=== PATIENT | male | born 1960 | race Caucasian/White ===

== ENCOUNTER 2021-01-06 11:05 | Inpatient (IN) | payer SELFPAY ==
[2021-01-06] VITALS (48 sets, daily range): BP systolic 83–130; BP diastolic 43–78; PULSE 67–101; RESP 4–25; O2SAT 90–100; BMI 32.1
--- NOTE | 2021-01-06 11:16 | ECG_ITS ---
[facility] Test Date: 2021-01-06 Pat Name: Jeffy Nguyen Department: Room: Gender: Male Director Of Online Education: : 1960 Requested By: Kevan Limon I Order Number: [id number] Tameka MD: Colin Ma M.D. Measurements Intervals [place] Rate: 97 P: 37 OR: 157 QRS: 38 QRSD: 105 T: 55 QT: 353 QTc: 450 Interpretive Statements SINUS RHYTHM EARLY REPOLARIZATION [ST ELEVATION WITH NORMALLY INFLECTED T WAVE] Compared to ECG 09/30/2019 14:46:02 Early repolarization now present Electronically Signed On 01-06-2021 20:55:55 DRYING MACHINE BACK TENDER by Colin Ma M.D. [id number]
--- NOTE | 2021-01-06 11:16 | XR_ITS ---
WS: [id number] PORTABLE CHEST HISTORY: Chest pain COMPARISON: 09/30/2019 Lungs are clear and well expanded. No pleural effusion or pneumothorax. Cardiac size: Normal. Mediastinum/Aorta: Normal mediastinum. No osseous abnormality seen. XR/XR chest 1V portable [id number] IMPRESSION: Unremarkable portable chest.
--- NOTE | 2021-01-06 11:18 | W.ED.CHESTPA ---
HPI - Chest Pain General: Chief Complaint: Chest Pain Stated Complaint: chest pain Time Seen by Provider: 01/06/21 11:07 Source: patient Mode of arrival: ambulatory Limitations: no limitations History of Present Illness: HPI narrative: Patient is a 60-year-old male with a history of hypertension and no cardiac history presents to the emergency department with complaints of substernal chest pain that started about an hour prior to arrival. After about 30 minutes he took 1 nitroglycerin sublingual tablets with no improvement. He therefore presents to the emergency department for evaluation. He endorses dizziness, diaphoresis, nausea. Symptoms started when he was cutting trees. He has no prior cardiac history. complaint: chest pain Onset (ago): hour(s) (1) Timing of current episode: constant Prior episodes: No Onset: during exertion Pain location: substernal Pain radiation: jaw/teeth Severity: moderate Quality: sharp Relieving factors: nothing Exacerbating factors: exertion Associated symptoms: Reports diaphoresis, dyspnea and nausea; Deny abdominal pain, fever(s), leg edema, palpitations, sense of impending doom, syncope or vomiting Review of Systems General: Reports: 10 or more systems reviewed and unremarkable except in HPI and below Const: Reports: diaphoresis; Denies: fever(s) Eyes: Denies: change in vision or blurry vision ENMT: Denies: throat pain, enlarged tonsils, odynophagia, hoarseness, mouth pain or swelling of lips/tongue Card: Denies: palpitations or syncope Resp: Reports: dyspnea GI: Reports: nausea; Denies: abdominal pain or vomiting : Denies: flank pain, dysuria, urinary frequency, urinary urgency or urinary hesitancy Musc: Denies: neck pain, back pain or extremity swelling Skin/Breast: Denies: rash, pruritus or erythema Neuro: Denies: headache(s), numbness in extremities or weakness in extremities Endo: Denies: polyuria, polydipsia or tired all the time PFSH ED PFSH: Medical History HLD (hyperlipidemia) HTN (hypertension) Surgical History History of appendectomy History of hip surgery History of surgery on arm Family History Mother CHF (congestive heart failure) Social History Smoking and tobacco status: never smoked Alcohol intake: current Alcohol intake frequency: holidays/special occasions only Lives independently: Yes Current occupational status: employed Physical Exam Const: COMMON NORMALS: no acute distress, average body habitus, patient oriented x3, no limitations, healthy appearing, alert and well nourished HENMT: COMMON NORMALS: normocephalic, atraumatic and moist oral mucous membranes HEAD & SCALP: normocephalic and atraumatic Neck/C-Spine: COMMON NORMALS: no meningeal signs and no JVD Chest: COMMONS NORMALS: normal inspection of the chest and normal palpation of entire chest wall Resp: COMMON NORMALS: normal respiratory effort, No retractions, No use of accessory muscles, clear to auscultation bilaterally and percussion normal AUSCULTATION: clear to auscultation bilaterally PERCUSSION: percussion normal Cardio: COMMON NORMALS: no JVD, regular rate, regular rhythm, S1 normal heart sound present, S2 normal heart sound present, No gallops present (Cardio), No clicks present (Cardio), No rub (Cardio) and Peripheral pulses 2+ throughout RATE: regular rate RHYTHM: regular rhythm HEART SOUNDS: S1 normal heart sound present, S2 normal heart sound present and Murmur heart sound present PERIPHERAL PULSES: Peripheral pulses 2+ throughout GI: COMMON NORMALS: Normal to inspection, nondistended, normoactive bowel sounds present, Soft to palpation, non-tender, No hepatosplenomegaly present, no masses and no bruits PALPATION: Yes Soft to palpation and Yes No hepatosplenomegaly present Extremity: COMMON NORMALS: normal to inspection, full ROM, capillary refill normal, no calf tenderness and no pedal edema Neuro: COMMON NORMALS: patient oriented x3 SENSORIUM/ORIENTATION: Yes alert MENINGEAL SIGNS: Yes no meningeal signs Skin: COMMON NORMALS: no rashes or lesions noted, no wounds, turgor normal, no jaundice, no petechiae and no mottling GENERAL SKIN EXAM: no rashes or lesions noted and turgor normal Course Reevaluation(s): Time: 15:09 Consultations: Consultation #1: Discussed the patient with Dr. Bolden, park interpretive ranger. Discussed the baseline troponin with her. Since he appears to have CKD she advised that we wait for the 2-hour troponin. Time: 13:38 Consultation #2: Discussed the patient with Dr. Sapp, hospitalist. He kindly accepted the patient to his service. Time: 15:02 Vital Signs: Vital signs: Vital Signs Pulse Rate 76 01/06/21 21:49 Respiratory Rate 18 01/06/21 21:49 Blood Pressure 106/58 01/06/21 21:49 Pulse Oximetry 98 01/06/21 21:49 MDM - Chest Pain MDM Narrative: Medical decision making narrative: 60-year-old male with no prior cardiac history presents to the emergency department with chest pain that started while he was cutting trees. Evaluation in the emergency department was consistent with a non-STEMI. Because he appears to have chronic kidney disease he was started on a heparin drip and is admitted to the cardiac stepdown unit for further evaluation and management. He was mildly hypotensive in the emergency department through most of his stay here, otherwise he was stable. Medical Records: Attestation: I reviewed the patient's medical records. Lab Data: Attestation: I reviewed the patient's lab results. Labs: Lab Results 01/06/21 01/06/21 01/06/21 Range/Units 11:35 11:35 11:35 WBC 8.1 (4.0-10.0) 10^3/ uL RBC 5.00 (4.1-5.3) 10^6/u L Hgb 15.4 (11.7-16.6) g/dL Hct 46.1 (42.0-52.0) % MCV 92.2 (80-94) fL MCH 30.8 (28.0-34.0) pg MCHC 33.4 (30.0-36.0) g/dL RDW 11.9 L (12.1-15.1) % Plt Count 237 (130-400) 10^3/c mm MPV 11.2 H (7.4-10.4) fL Neut % (Auto) 76.4 % Lymph % (Auto) 14.0 % [place] % (Auto) 6.9 % Eos % (Auto) 1.6 % Baso % (Auto) 0.7 % Neut # (Auto) 6.16 (1.8-7.7) 10^3/u L Lymph # (Auto) 1.1 (0.8-4.8) 10^3/u L [place] # (Auto) 0.6 (0.2-0.9) 10^3/u L Eos # (Auto) 0.1 (0.0-0.8) 10^3/u L Baso # (Auto) 0.1 (0.0-0.1) 10^3/u L Nucleated RBC % (a uto) 0 % Nucleated RBCs # 0.0 /100WBC PT 13.00 (12.1-14.9) SECO NDS INR 0.95 (0.8-1.2) D-Dimer 0.77 H (0-0.59) ug/mIFE U Sodium 136 (136-145) mmol/L Potassium 4.2 (3.5-5.1) mmol/L Chloride 100 (98-107) mmol/L Carbon Dioxide 27 (22-29) mmol/L Anion Gap 13.2 (5-19) BUN 19 (8-23) mg/dL Creatinine 1.9 H (0.7-1.2) mg/dL GFR Calculation 36.1 L (90-130) mL/min Glucose 83 (65-115) mg/dL Calculated Osmolal ity 283 L (285-295) mOsm/k g Calcium 9.5 (8.5-10.5) mg/dL Total Bilirubin 0.4 (0.15-1.2) mg/dL AST 16 (0-40) U/L ALT 21 (0-41) U/L Alkaline Phosphata se 62 (40-130) IU/L Creatine Kinase (39-308) U/L Troponin T Baselin e (0-15) ng/L Troponin T 120 Min [place] (0-15) ng/L Delta Troponin T (0-10) ABS# NT-Pro-B Natriuret Pep 9 (0-125) pg/mL Total Protein 6.7 (6.6-8.7) g/dL Albumin 4.6 (3.5-5.2) g/dL Globulin 2.1 (1.3-4.6) g/dL Lipase 29 (13-60) U/L 01/06/21 01/06/21 01/06/21 Range/Units 11:35 11:35 14:10 WBC (4.0-10.0) 10^3/ uL RBC (4.1-5.3) 10^6/u L Hgb (11.7-16.6) g/dL Hct (42.0-52.0) % MCV (80-94) fL MCH (28.0-34.0) pg MCHC (30.0-36.0) g/dL RDW (12.1-15.1) % Plt Count (130-400) 10^3/c mm MPV (7.4-10.4) fL Neut % (Auto) % Lymph % (Auto) % [place] % (Auto) % Eos % (Auto) % Baso % (Auto) % Neut # (Auto) (1.8-7.7) 10^3/u L Lymph # (Auto) (0.8-4.8) 10^3/u L [place] # (Auto) (0.2-0.9) 10^3/u L Eos # (Auto) (0.0-0.8) 10^3/u L Baso # (Auto) (0.0-0.1) 10^3/u L Nucleated RBC % (a uto) % Nucleated RBCs # /100WBC PT (12.1-14.9) SECO NDS INR (0.8-1.2) D-Dimer (0-0.59) ug/mIFE U Sodium (136-145) mmol/L Potassium (3.5-5.1) mmol/L Chloride (98-107) mmol/L Carbon Dioxide (22-29) mmol/L Anion Gap (5-19) BUN (8-23) mg/dL Creatinine (0.7-1.2) mg/dL GFR Calculation (90-130) mL/min Glucose (65-115) mg/dL Calculated Osmolal ity (285-295) mOsm/k g Calcium (8.5-10.5) mg/dL Total Bilirubin (0.15-1.2) mg/dL AST (0-40) U/L ALT (0-41) U/L Alkaline Phosphata se (40-130) IU/L Creatine Kinase 166 (39-308) U/L Troponin T Baselin e 164 H* (0-15) ng/L Troponin T 120 Min [place] 423.5 H (0-15) ng/L Delta Troponin T 259.5 H* (0-10) ABS# NT-Pro-B Natriuret Pep (0-125) pg/mL Total Protein (6.6-8.7) g/dL Albumin (3.5-5.2) g/dL Globulin (1.3-4.6) g/dL Lipase (13-60) U/L Imaging Data^: CXR: Attestation: I personally reviewed and interpreted this imaging study as follows: Radiologist's impression: [address] [address] XRay Report Signed Patient: Jeffy Nguyen #: [id number] : 9Acct#:[id number] Age/Sex: 60 / MADM Date: 01/06/21 Loc: ERRoom/Bed: Attending Dr: Ordering Provider/Ordering MD: Kevan Limon [place], [facility] [place] Service: 01/06/21 Procedure(s): XR chest 1V portable [id number] Accession Number(s): [id number] Report Number: [id number] WS: [id number] PORTABLE CHEST HISTORY: Chest pain COMPARISON: 09/30/2019 Lungs are clear and well expanded. No pleural effusion or pneumothorax. Cardiac size: Normal. Mediastinum/Aorta: Normal mediastinum. No osseous abnormality seen. XR/XR chest 1V portable [id number] IMPRESSION: Unremarkable portable chest. Dictated By:Justina Gonzalez DO Signed By:Justina Gonzalez DOSigned Date/Time:01/06/21 1231 DD/ 1230 EKG Data^: EKG 1: Attestation: I personally reviewed and interpreted this EKG as follows: EKG interpretation date: 01/06/21 EKG interpretation time: 11:09 Prior EKG tracings: not available for review Interpretation: Sinus rhythm. Heart rate 97 bpm. Q waves in leads II and aVF. Early repolarization. EKG 2: Attestation: I personally reviewed and interpreted this EKG as follows: EKG interpretation date: 01/06/21 EKG interpretation time: 13:32 Prior EKG tracings: available for review Interpretation: Sinus rhythm. Heart rate 79 bpm. Q wave in leads II and aVF. No ST changes Critical Care Time Critical Care Time: Critical Care Time: Yes Total Critical Care Time: 60 Attestation: This case had a high probability of a clinically significant, sudden, or life threatening deterioration of this patient's condition which required my full and direct attention, intervention and personal management. Discharge Plan Discharge Patient Disposition: Admitted As Inpatient Admit Provider: Eric Sapp Clinical Impression: NSTEMI (non-ST elevated myocardial infarction) Hypotension Qualifiers: Hypotension type: unspecified hypotension type Qualified Code(s): I95.9 - Hypotension, unspecified Chronic kidney disease Qualifiers: Chronic kidney disease stage: stage 3 (moderate) Chronic kidney disease stage 3 subtype: stage 3b (GFR 30-44) Qualified Code(s): N18.32 - Chronic kidney disease, stage 3b Condition: Stable Coding Level of Care Code ED Credentialing Manager for Chg Fwd Exam Comprehensive
[2021-01-06] MEDS: aspirin 81 mg Chew Tablet 243 MG PO (11:31)
[2021-01-06] MEDS: sodium chloride 0.9% 1,000 ML 999 ML IV ×2 (11:33→14:11)
--- NOTE | 2021-01-06 11:35 | PC.PHAR ---
pt states he has atorvastatin but doesnt take it-pt states he thinks it makes his legs swell-ext med history shows last filled on 05/21/20 90d/s-pt states he has sildenafil 30mg 40mg po daily filled on 08/07/20 20d/s but hasnt taken it in a long time-
[2021-01-06] MEDS: nitroglycerin 1 gm/inch oint Pkt 1 INCH TOPICAL (11:39)
[2021-01-06 12:02] LABS: INR 0.95 (0.8-1.2)
[2021-01-06 12:05] LABS: D Dimer 0.77 ug/mIFEU (0-0.59)
[2021-01-06 12:08] LABS: Basophils # 0.1 10^3/uL (0.0-0.1); Basophils % 0.7 %; Eosinophils # 0.1 10^3/uL (0.0-0.8); Eosinophils % 1.6 %; Hematocrit 46.1 % (42.0-52.0); Hemoglobin 15.4 g/dL (11.7-16.6); Lymphocytes # 1.1 10^3/uL (0.8-4.8); Mean Corpuscular HGB Conc 33.4 g/dL (30.0-36.0); Mean Corpuscular Hemoglobin 30.8 pg (28.0-34.0); Mean Corpuscular Volume 92.2 fL (80-94); Mean Platelet Volume 11.2 fL (7.4-10.4); Monocytes # 0.6 10^3/uL (0.2-0.9); Monocytes % 6.9 %; Neutrophils # 6.16 10^3/uL (1.8-7.7); Neutrophils % 76.4 %; Nucleated Red Blood Cells % 0 %; Platelet Count 237 10^3/cmm (130-400); Red Cell Distribution Width 11.9 % (12.1-15.1); White Blood Count 8.1 10^3/uL (4.0-10.0)
[2021-01-06 12:19] LABS: Alanine Aminotransferase 21 U/L (0-41); Albumin Level 4.6 g/dL (3.5-5.2); Alkaline Phosphatase 62 IU/L (40-130); Anion Gap 13.2 (5-19); Aspartate Amino Transferase 16 U/L (0-40); Blood Urea Nitrogen 19 mg/dL (8-23); Calcium 9.5 mg/dL (8.5-10.5); Carbon Dioxide 27 mmol/L (22-29); Chloride 100 mmol/L (98-107); Globulin 2.1 g/dL (1.3-4.6); Glomerular Filtration Rate 36.1 mL/min (90-130); Glucose 83 mg/dL (65-115); Lipase 29 U/L (13-60); NT Pro B Type Natriuretic Pept 9 pg/mL (0-125); Osmolality Calculated 283 mOsm/kg (285-295); Potassium 4.2 mmol/L (3.5-5.1); Sodium 136 mmol/L (136-145); Total Bilirubin 0.4 mg/dL (0.15-1.2); Total Protein 6.7 g/dL (6.6-8.7)
--- NOTE | 2021-01-06 13:16 | ECG_ITS ---
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 Measurements Intervals [place] Rate: 79 P: 52 NC: 155 QRS: 54 QRSD: 106 T: 61 QT: 388 QTc: 446 Interpretive Statements SINUS RHYTHM Compared to ECG 01/06/2021 11:09:29 Early repolarization no longer present Electronically Signed On 01-06-2021 21:01:38 ENTERPRISE INTEGRATION DEVELOPER by Colin Ma M.D. [id number]
[2021-01-06 13:28] LABS: Troponin(5th) Baseline 164 ng/L (0-15)
--- NOTE | 2021-01-06 13:40 | PC.NURSE ---
EKG done at 1332 and and shown to ER doctor
[2021-01-06] MEDS: heparin 5,000 unit/mL INJ 1 mL 4000 UNIT IVP (14:11)
[2021-01-06 14:48] LABS: Troponin 5 2HR 423.5 ng/L (0-15); Troponin 5 2HR Delta 259.5 ABS# (0-10)
[2021-01-06] MEDS: heparin drip 25,000 UNIT/500 ML PREMIX 31.8 UNIT IV (15:15)
[2021-01-06 15:20] LABS: Creatine Phosphokinase 166 U/L (39-308)
[2021-01-06 15:45] LABS: Platelet Count 230 10^3/cmm (130-400)
--- NOTE | 2021-01-06 16:22 | USCV_ITS ---
Patrick Jeffy Age: 60 Gender: M : 1960 Exam Date: 01/06/2021 17:38 Ordering Phys: Liz Bolden MD ([email or web address]) Technologist: Nicole Henry [place]am [place] [facility] [place]: NSTEMI BP: 101 / 68 HR: 73 Rhythm: Sinus Technical Quality: Adequate MEASUREMENTS (Male / Female) Normal Values 2D ECHO LV Diastolic Diameter PLAX 4.4 cm 4.2 - 5.9 / 3.9 - 5.3 cm LV Systolic Diameter PLAX 2.9 cm LV Chamber Size 4.9 cm IVS Diastolic Thickness 1.2 cm 0.6 - 1.0 / 0.6 - 0.9 cm IVS Systolic Thickness 1.4 cm LVPW Diastolic Thickness 1.1 cm 0.6 - 1.0 / 0.6 - 0.9 cm LVPW Systolic Thickness 1.7 cm RV Chamber Size 3.0 cm LVOT Diameter 2.1 cm LV Ejection Fraction 2D Teich 63.5 % LV Ejection Fraction MOD 2C 51.4 % LV Ejection Fraction 2C AL 51.9 % LA Diameter 3.6 cm LA Width 3.4 cm LA Height 4.2 cm RA Width 2.9 cm RA Height 3.0 cm Aorta at Sinotubular Diameter 3.1 cm M-MODE LV Diastolic Diameter MM 5.5 cm 4.2 - 5.9 / 3.9 - 5.3 cm LV Systolic Diameter MM 3.5 cm LV Ejection Fraction MM Teich 66.6 % IVS Diastolic Thickness MM 0.9 cm 0.6 - 1.0 / 0.6 - 0.9 cm IVS Systolic Thickness MM 1.8 cm LVPW Diastolic Thickness MM 1.1 cm 0.6 - 1.0 / 0.6 - 0.9 cm LVPW Systolic Thickness MM 1.6 cm RV Diastolic Diameter MM 0.8 cm Aortic Annulus Diameter 4.0 cm LA Ao Ratio MM 1.1 MV E Point Septal Separation 0.6 cm DOPPLER AV Peak Velocity 357.0 cm/s LVOT Peak Velocity 206.0 cm/s AV Area Cont Eq vti 1.6 cm squared AV Area Cont Eq pk 1.9 cm squared MV Area PHT 5.0 cm squared Mitral E to A Ratio 1.2 MV E' Velocity 42.0 cm/s Mitral E to MV E' Ratio 11.7 Mitral E to LV E' Lateral Ratio 11.2 Mitral E to LV E' Septal Ratio 12.3 TR Peak Velocity 255.4 cm/s TR Peak Gradient 26.1 mmHg TR Mean Velocity 170.5 cm/s TR Mean Gradient 14.0 mmHg TR Velocity Time Integral 58.6 cm TV Peak E Velocity 54.0 cm/s Right Atrial Pressure 3.0 mmHg Pulmonary Artery Systolic Pressu 29.1 mmHg PV Peak Velocity 68.0 cm/s RV Acceleration Time 0.2 s RV Ejection Time 0.3 s RV AcT/ET 0.5 FINDINGS Left Ventricle Normal left ventricular cavity size. There is basal septal hypertrophy. Mildly decreased left ventricular systolic function. Left ventricular ejection fraction is estimated at 40- 45%. There is hypokinesis of mid to apical anteroseptal, mid to apical anterior, apical lateral, apical inferior and apical edward. Normal diastolic function. Right Ventricle Normal right ventricular size and systolic function. Right ventricular systolic pressure 35 mmHg. Right Atrium Normal right atrial size. Left Atrium Normal left atrial size. Mitral Valve Structurally normal mitral valve. Mild systolic anterior motion of anterior mitral valve leaflet. No mitral valve stenosis. Trace to mild mitral valve regurgitation. Aortic Valve Structurally normal trileaflet aortic valve. No aortic valve stenosis. No aortic valve regurgitation. Dynamic left ventricular outflow tract obstruction with resting left ventricular outflow tract gradient of 31 mmHg that increases with Valsalva to 144 mmHg. Tricuspid Valve Structurally normal tricuspid valve. No tricuspid valve stenosis. Trace tricuspid valve regurgitation. Pulmonic Valve Pulmonic valve not well visualized. No pulmonary valve stenosis. Trace pulmonary valve regurgitation. Pericardium No pericardial effusion. Aorta Normal size aortic root and proximal ascending aorta. CONCLUSIONS 1. This is a technically difficult study. Ultrasound enhancing agent Optison was used. 2. Normal left ventricular cavity size. There is basal septal hypertrophy. Mildly decreased left ventricular systolic function. Left ventricular ejection fraction is estimated at 40- 45%. There is hypokinesis of mid to apical anteroseptal, mid to apical anterior, apical lateral, apical inferior and apical edward. Normal diastolic function. 3. Normal right ventricular size and systolic function. 4. Pulmonary artery pressure estimated at 35 mmHg. 5. Dynamic left ventricular outflow tract obstruction with resting left ventricular outflow tract gradient of 31 mmHg that increases with Valsalva to 144 mmHg. 6. 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 7. No prior similar studies to compare. Liz Bolden MD (Electronically Signed) Final Date: 06 January 2021 20:07 S
[2021-01-06 18:15] LABS: Troponin 5 6HR 537.5 ng/L (0-15)
[2021-01-06 18:16] LABS: Troponin 5 6HR Delta 373.5 ng/L (0-12)
[2021-01-06] MEDS: perflutren protein-a microsphr 0.22 mg/mL SDV 3 mL IV (18:23)
--- NOTE | 2021-01-06 19:09 | P.HP_ITS ---
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 He took a nitroglycerin pill (he states he is not taking sildenafil in a long time), and says he got little bit of relief, but feels generally weak, and still had chest pain. This persisted up until sometime in ER at which point it resolved. In ER he received 1 inch Nitro-Bid paste, aspirin 243 mg, and was started on anticoagulation for non-STEMI with cardiology consultation requested. Noted transiently low blood pressure in the ER. He had taken his blood pressure medications. This has been improving. During my visit he is chest pain-free. He reports past history of possible mild heart attack due to which he remains on aspirin 81 mg, atorvastatin. States he was told there was no permanent injury to his heart at the time. In the ER noted troponin elevation [phone]. EKG with sinus rhythm. Chest x-ray unremarkable. Mediastinum is normal. D-dimer noted abnormal at 0.77. He has not had any cough, shortness of breath, any hemoptysis, any tachycardia. He is saturating in mid to high 90s on room air. Per discussion with ER physician suspicion of PE is low. He is noted to have creatinine 1.9, which appears may be at baseline with his prior chronic kidney disease going back to September 2019, although he did not have any intervening values. Review of Systems Const: Denies: fever(s), chills or body aches Eyes: Denies: change in vision or blurry vision ENMT: Denies: throat pain, enlarged tonsils, odynophagia, hoarseness, mouth pain, swelling of lips/tongue, nasal discharge or nasal congestion Card: Reports: chest pain; Denies: palpitations, edema, syncope or orthopnea Resp: Denies: dyspnea, productive cough, non-productive cough, hemoptysis or chest congestion GI: Denies: abdominal pain or vomiting : Denies: flank pain, dysuria, urinary frequency, urinary urgency or urinary hesitancy Musc: Denies: neck pain, back pain or extremity swelling Skin/Breast: Denies: rash, pruritus or erythema Neuro: Denies: headache(s), numbness in extremities or weakness in extremities Endo: Denies: polyuria, polydipsia or tired all the time King/Lymph: Denies: easy bleeding or purpura All/Imm: Denies: urticaria, throat swelling or tongue swelling Medications/Allergies Home Medications Medication Instructions Recorded Confirmed Last Taken Type acetaminophen [Tylenol Extra 1,000 mg PO PRN 01/06/21 01/06/21 Unknown History Strength] aspirin [Aspir-81] 81 mg PO QAM 01/06/21 01/06/21 01/06/21 History atorvastatin See Rx Instructions .ROUTE .COMPLEX 01/06/21 01/06/21 Unknown History hydrochlorothiazide 25 mg PO QAM 01/06/21 01/06/21 01/06/21 History lisinopril 20 mg PO QAM 01/06/21 01/06/21 01/06/21 History sildenafil (pulm.hypertension) See Rx Instructions .ROUTE .COMPLEX 01/06/21 01/06/21 Unknown History Allergies Allergy/AdvReac Type Severity Reaction Status Date / Time Penicillins Allergy ALGY-Hives Verified 01/06/21 11:32 PFSH Acute PFSH: Medical History HLD (hyperlipidemia) HTN (hypertension) Surgical History History of appendectomy History of hip surgery History of surgery on arm Family History Mother CHF (congestive heart failure) Social History Smoking and tobacco status: never smoked Alcohol intake: current Alcohol intake frequency: holidays/special occasions only Substance/Drug Use: never Lives independently: Yes Current occupational status: employed Vitals/I&O/Wt Last Vital Signs Pulse 82 01/06/21 18:57 Resp 19 H 01/06/21 18:57 BP 118/78 01/06/21 18:57 Pulse Ox 95 01/06/21 18:57 0301/06/21 01/06/21 06:59 14:59 22:59 Intake Total 999 / 999 999 / 1999 Balance 999 / 999 Weight last 48 hrs Weight 113.398 kg Physical Exam Narrative: EXAM NARRATIVE: Accompanied by his friend and work colleague Const: COMMON NORMALS: no acute distress and patient oriented x3 HENMT: COMMON NORMALS: oropharynx normal Neck/C-Spine: COMMON NORMALS: no JVD Resp: COMMON NORMALS: normal respiratory effort and clear to auscultation bilaterally AUSCULTATION: clear to auscultation bilaterally Cardio: COMMON NORMALS: no JVD, regular rhythm, S1 normal heart sound present, S2 normal heart sound present and No murmurs present (Cardio) RHYTHM: regular rhythm HEART SOUNDS: S1 normal heart sound present and S2 normal heart sound present GI: COMMON NORMALS: Normal to inspection, nondistended, normoactive bowel sounds present, Soft to palpation and non-tender PALPATION: Yes Soft to palpation Extremity: COMMON NORMALS: no joint enlargement and no pedal edema Neuro: COMMON NORMALS: patient oriented x3 and moves all extremities Skin: COMMON NORMALS: no rashes or lesions noted GENERAL SKIN EXAM: no rashes or lesions noted Data : 01/06/21 15:25 01/06/21 11:35 A&P Assessment and plan (1) NSTEMI (non-ST elevated myocardial infarction): Continue aspirin, statin, anticoagulation, no beta-nurys to start with soft blood pressure. Decision was loaded with Plavix per cardiology. Underwent assessment by TTE, which was reviewed by cardiology to assist with decision regarding further risk stratification. Status: Acute (2) D-dimer, elevated: Discussed with ER physician, patient. Suspicion for PE is low. He does not have symptoms and his symptoms are explained better by his underlying condition. Will assess lower extremity duplex ultrasound. Monitor for any change in symptoms. Status: Acute (3) Hypotension: Blood pressure noted soft in ER, improving. As low as 83/61 at presentation. Received 2L IVf boluses. Up to 118/78 in ER prior at admission. It appears he takes antihypertensives at home. Will hold these medications. Hold beta-nurys. Monitor blood pressures. His chest pain has resolved. His mediastinum appears normal. Will request blood pressure both arms, although suspicion of dissection is low. Low threshold for additional evaluation CT angiogram despite chronic kidney disease versus acute kidney injury. BP right arm 98/64, left arm 103/68. Status: Acute (4) Chronic kidney disease: Suspected chronic kidney disease based on creatinine being similar to multiple values in 2019. Discussed with him. Hold lisinopril for now. Monitor renal function. Hold antihypertensives, avoid hypotension. Status: Acute Attestations Medical Necessity Statement*: Admission of over 2 midnights is going to be needed for assessment and management of NSTEMI. Coding Level of Care Code Acute Paid Search Marketing Strategist for [facility] Fwd Exam Comprehensive Diagnoses NSTEMI (non-ST elevated myocardial infarction) I21.4 D-dimer, elevated R79.89 Hypotension I95.9 Chronic kidney disease N18.9
--- NOTE | 2021-01-06 19:25 | PM.CONSULT ---
Providers/Reason For Consult Consulting Physican/Specialty*: Dr. Bolden, cardiology Reason for Consult*: Non-ST elevation PA Attending Physician: Eric Sapp History of Present Illness History of Present Illness Jeffy Nguyen is a 60 year old male with past medical history of hypertension, hyperlipidemia and obesity presented to the ER for evaluation of chest pain. Earlier today he was cutting wood when he developed retrosternal 9/10 pressure-like chest discomfort that radiated to his jaw on both sides. He has nitroglycerin and he used 1 without any significant improvement of discomfort. He came to the ER for further evaluation. He took nitroglycerin about 10:31 AM and arrived in the ER at 11:07 AM. Blood pressure on arrival to the ER was 91/65 mmHg and heart rate was 95 bpm. EKG on arrival showed sinus rhythm and early repolarization changes. No significant change was noted on subsequent EKG. baseline troponin T of 164 and at 2 hours of 424. At 6-hour troponin T increased to 536. He received aspirin Nitro-Bid topical and was started on heparin drip. Chest x-ray did not show any acute abnormalities. At time of evaluation patient denies having any chest discomfort. He does endorse to having episodes of exertional dyspnea for last several months as well as intermittent episodes of chest discomfort that were shorter and less intense in duration. He had a Lexiscan myocardial perfusion imaging in September 2019 after an admission for chest discomfort that showed normal myocardial perfusion imaging with normal LV function and no regional wall motion abnormality. He has history of coronary angiogram more than a decade ago that was normal as per patient. On his last admission his creatinine was increased but given lack of priors it was thought to be acute kidney injury. Patient states he had some lab work with his primary care physician LEYLA De Jesus but he is not aware of results from August of last year. Review of Systems Const: Denies: fever(s), chills or body aches Eyes: Denies: change in vision or blurry vision ENMT: Denies: throat pain, enlarged tonsils, odynophagia, hoarseness, mouth pain, swelling of lips/tongue, nasal discharge or nasal congestion Card: Reports: chest pain; Denies: palpitations, edema, syncope or orthopnea Resp: Denies: dyspnea, productive cough, non-productive cough, hemoptysis or chest congestion GI: Denies: abdominal pain or vomiting : Denies: flank pain, dysuria, urinary frequency, urinary urgency or urinary hesitancy Musc: Denies: neck pain, back pain or extremity swelling Skin/Breast: Denies: rash, pruritus or erythema Neuro: Denies: headache(s), numbness in extremities or weakness in extremities Endo: Denies: polyuria, polydipsia or tired all the time King/Lymph: Denies: easy bleeding or purpura All/Imm: Denies: urticaria, throat swelling or tongue swelling Meds/Allergies Home Medications and Allergies Home Medications Medication Instructions Recorded Confirmed Last Taken Type acetaminophen [Tylenol Extra 1,000 mg PO PRN 01/06/21 01/06/21 Unknown History Strength] aspirin [Aspir-81] 81 mg PO QAM 01/06/21 01/06/21 01/06/21 History atorvastatin See Rx Instructions .ROUTE .COMPLEX 01/06/21 01/06/21 Unknown History hydrochlorothiazide 25 mg PO QAM 01/06/21 01/06/21 01/06/21 History lisinopril 20 mg PO QAM 01/06/21 01/06/21 01/06/21 History sildenafil (pulm.hypertension) See Rx Instructions .ROUTE .COMPLEX 01/06/21 01/06/21 Unknown History Allergies Allergy/AdvReac Type Severity Reaction Status Date / Time Penicillins Allergy ALGY-Hives Verified 01/06/21 11:32 Current Medications Current Medications Generic Name Dose Route Start Last Admin Trade Name Freq PRN Reason Stop Dose Admin Heparin Sodium/Sodium Chloride 25,000 unit in 500 mls @ 0 mls/hr 01/06/21 15:00 01/06/21 15:15 Heparin Drip IV 14 unit/kg/hr .Q0M ELIO 31.8 mls/hr Administration Protocol Per Protocol PFSH Acute PFSH: Medical History HLD (hyperlipidemia) HTN (hypertension) Surgical History History of appendectomy History of hip surgery History of surgery on arm Family History Mother CHF (congestive heart failure) Social History Smoking and tobacco status: never smoked Alcohol intake: current Alcohol intake frequency: holidays/special occasions only Substance/Drug Use: never Lives independently: Yes Current occupational status: employed Vitals/I&O/Wt Last Vital Signs Pulse 79 01/06/21 19:21 Resp 15 01/06/21 19:21 BP 95/65 01/06/21 19:21 Pulse Ox 95 01/06/21 19:21 01/06/21 01/06/21 01/06/21 06:59 14:59 22:59 Intake Total 1000 / 1000 1000 / 2000 Balance 1000 / 1000 1000 / 2000 Weight last 48 hrs Weight 250 lb Physical Exam Narrative: EXAM NARRATIVE: GENERAL: obese man lying in bed in no acute distress HEENT: Extraocular movement intact. Pupils equal round reactive to light. No pallor or icterus. NECK: central trachea, No JVD or abdominojugular reflex. No carotid bruit. CARDIOVASCULAR SYSTEM: S1-S2 regular. No S3 or S4 present. No murmur rubs or gallops. RESPIRATORY SYSTEM: Chest clear to auscultation. No wheezes rhonchi or rubs heard. No use of accessory muscles. ABDOMEN: Soft, nontender and nondistended. Normal bowel sounds present. EXTREMITIES: No cyanosis or clubbing. No edema. No signs of chronic venous insufficiency. INTERIOR HORTICULTURIST: Patient is alert oriented ?3. No focal neurological deficits. Cranial nerves intact. SKIN: Normal turgor and temperature. No breakdown, rash or nail changes noted. PSYCH: Normal insight and judgment. Data Other Data: Attestation for Other Data: I personally reviewed and interpreted the following: Other data: Lexiscan sestamibi myocardial perfusion imaging 01 October 2019 IMPRESSIONS #1. Unremarkable myocardial perfusion imaging. #2. Normal LV ejection fraction of 63%. #3. LV wall motion analysis revealing no gross wall motion abnormalities. #4. Normal LV volume. No significant coronary ischemia, based on the above findings Echocardiogram 15 January 2014 CONCLUSIONS 1-Normal left ventricular size, systolic function and wall thickness, with no regional wall motion abnormalities. Normal left ventricular wall thickness. Normal diastolic filling pattern. Left ventricular ejection fraction is estimated at 73 %. 2-Mildly dilated aortic annulus. 3-No significant valve abnormalities. 4-There is no pericardial effusion. 5-There are no intracardiac masses. 6-Pulmonary artery systolic pressure is within normal limits. 7-There are no prior echocardiogram studies to compare. A&P Assessment and plan (1) NSTEMI (non-ST elevated myocardial infarction): Received ASA. continue heparin gtt. -start on statin and low dose metoprolol and NTG for angina. -continue to monitor closely given soft BP. -Echo with LAD territory RWMA. LVEF mildly decreased. 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 -continue to manage medically in the meantime. Status: Acute (2) Hypotension: Given HCM phenotype, recommend IV fluids, avoiding dehydration and afterload reducers. -Beta blockers to keep HR 50-60 bpm. Status: Acute Qualifiers: Hypotension type: unspecified hypotension type Qualified Code(s): I95.9 - Hypotension, unspecified (3) HLD (hyperlipidemia): Status: Acute Qualifiers: Hyperlipidemia type: unspecified Qualified Code(s): E78.5 - Hyperlipidemia, unspecified (4) Chronic kidney disease: Baseline unknown, however Cr-1.9 today and in last admission. Status: Acute Qualifiers: Chronic kidney disease stage: unspecified stage Qualified Code(s): N18.9 - Chronic kidney disease, unspecified Additional A&P Information H/O HTN HOCM phenotype Thank you for allowing me to participate in patient's care. Please feel free to call with questions or concerns. Consult Attestations Medical Necessity Statement: He needs hospital stay for management of a non-ST elevation PA Time Spent in Patient Care: Greater than 35 minutes (>than 50% of time spent in counselling and/or direct pt care on unit). Coding Level of Care Code Acute Automotive Starter Repairer for [facility] Fwd Diagnoses NSTEMI (non-ST elevated myocardial infarction) I21.4 Hypotension I95.9 Hypotension type: unspecified hypotension type HLD (hyperlipidemia) E78.5 Hyperlipidemia type: unspecified Chronic kidney disease N18.9 Chronic kidney disease stage: unspecified stage
--- NOTE | 2021-01-06 19:38 | PC.NURSE ---
Per Dr Munguia, bilateral BP to be obtained to rule out dissection. Manual BP on R 98/64. notified
--- NOTE | 2021-01-06 19:41 | PC.NURSE ---
vo from Dr Munguia, if mean BP 6565 or greater, pt can remain in CSU bed. If BP mean 65 or less, pt to be admitted on ICU
[2021-01-06] MEDS: sodium chloride 0.45% 1,000 ML 75 ML IV (22:33)
[2021-01-06] MEDS: atorvastatin 40 mg Tablet PO (22:36)
--- NOTE | 2021-01-06 23:31 | PC.NURSE ---
NURSE NOTE: ADMISSION; PT ARRIVED TO UNIT AT APPROXIMATELY 2145 TODAY; HEPARIN GTT INFUSING AT 31 MLS /HR. PT IS ALERT AND ORIENTED X4; MOVES ALL EXTREMITIES AND FOLLOWS ALL COMMANDS. DENIES PAIN AT THIS TIME. PT UAL/GAIT STEADY. CURRENTLY RESTING WITH EYES CLOSED, RESP EVEN AND NON LABORED. NO DISTRESS NOTED AT THIS TIME. ALL VS AND ASSESSMENTS CHARTED.
[2021-01-07] VITALS (51 sets, daily range): BP systolic 77–170; BP diastolic 46–105; PULSE 68–101; RESP 0–24; TEMP 36.6–37.6; O2SAT 91–100
--- NOTE | 2021-01-07 00:04 | ECG_ITS ---
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 Measurements Intervals [place] Rate: 66 P: 42 HI: 172 QRS: 51 QRSD: 119 T: 51 QT: 458 QTc: 480 Interpretive Statements SINUS RHYTHM MODERATE INTRAVENTRICULAR CONDUCTION DELAY [110+ ms QRS DURATION] PROLONGED QT INTERVAL Compared to ECG 01/06/2021 13:32:15 Intraventricular conduction delay now present Prolonged QT interval now present Electronically Signed On 01-07-2021 21:58:46 SILVERER by Liz Bolden M.D. [id number]
--- NOTE | 2021-01-07 00:37 | PC.NURSE ---
Spoke with Dr. Delgadillo regarding this patient's decreasing MAP. Requested a 12 lead EKG and a right sided EKG. Dr. Delgadillo requested we send a picture of the 12 leads to the pipe connector cardiology.
--- NOTE | 2021-01-07 01:12 | PC.NURSE ---
NURSE NOTE: HYPOTENSION: PT'S BP CONSISTENTLY SOFT IN THE 80'S AND 90'S OVER 40'S AND 50'S SINCE ARRIVAL TO THE UNIT AT APPROXIMATELY 2200 THIS SHIFT. PT HAD BEEN C/O CONSISTENT CP IN THE ED BUT HAS DENIED CP SINCE COMING TO THE UNIT. D/T LOW MAP , PLACED CALL TO DR. CÁRDENAS AND RECEIVED ORDERS FOR EKG NOW. RESULTS TAKEN TO DR. CÁRDENAS AND NO NEW ORDERS RECEIVED AT THIS TIME. CALL PLACED TO DR. OVALLE, NO NEW ORDERS NOTED. PT CURRENTLY RESTING WITH EYES CLOSED, RESP EVEN AND NON LABORED. DENIES PAIN OR DISCOMFORT. WILL CONTINUE TO MONITOR.
[2021-01-07 05:12] LABS: Basophils # 0.1 10^3/uL (0.0-0.1); Basophils % 0.8 %; Eosinophils # 0.2 10^3/uL (0.0-0.8); Eosinophils % 3.1 %; Hematocrit 41.9 % (42.0-52.0); Lymphocytes # 1.8 10^3/uL (0.8-4.8); Lymphocytes % 24.8 %; Mean Corpuscular HGB Conc 33.4 g/dL (30.0-36.0); Mean Corpuscular Hemoglobin 31.3 pg (28.0-34.0); Mean Corpuscular Volume 93.7 fL (80-94); Mean Platelet Volume 11.2 fL (7.4-10.4); Monocytes # 0.6 10^3/uL (0.2-0.9); Monocytes % 8.7 %; Neutrophils % 62.3 %; Nucleated Red Blood Cells % 0 %; Platelet Count 180 10^3/cmm (130-400); Red Blood Count 4.47 10^6/uL (4.1-5.3); Red Cell Distribution Width 12.1 % (12.1-15.1); White Blood Count 7.4 10^3/uL (4.0-10.0)
[2021-01-07 05:36] LABS: Alanine Aminotransferase 16 U/L (0-41); Albumin Level 3.7 g/dL (3.5-5.2); Alkaline Phosphatase 53 IU/L (40-130); Anion Gap 13.4 (5-19); Aspartate Amino Transferase 20 U/L (0-40); Blood Urea Nitrogen 18 mg/dL (8-23); Calcium 8.6 mg/dL (8.5-10.5); Carbon Dioxide 23 mmol/L (22-29); Chloride 104 mmol/L (98-107); Glucose 91 mg/dL (65-115); Osmolality Calculated 283 mOsm/kg (285-295); Potassium 4.4 mmol/L (3.5-5.1); Sodium 136 mmol/L (136-145); Total Bilirubin 0.5 mg/dL (0.15-1.2); Total Protein 5.7 g/dL (6.6-8.7)
--- NOTE | 2021-01-07 05:46 | PC.NURSE ---
NURSE NOTE: SHIFT SUMMARY: AT APPROXIMATELY 0300 TODAY, PT WOKE UP AGITATED AND AGGRESSIVE. PT ATTEMPTED TO HIT TECH AND NURSE WHEN TRYING TO PUT 02 BACK ON. PT VERBALLY ABUSIVE, CALLING THIS NURSE A SOW , AND A BITCH , AND ATTEMPTING TO PINCH AND HIT THIS NURSE IN THE CHEST. THIS BEHAVIOR CONTINUED FOR APPROXIMATELY 1 HOUR BEFORE PT FELL ASLEEP. WOKE UP AGAIN AROUND 0500 AND BEGAN TO CURSE AT SITTER; FELL ASLEEP WITHIN APPROXIMATELY 20 MIN. ALL VS AND ASSESSMENTS CHARTED. SITTER REMAINS AT BEDSIDE.
[2021-01-07] MEDS: aspirin 325 mg Tablet PO (08:18)
[2021-01-07] MEDS: famotidine 20 mg Tablet PO ×2 (08:18→18:22)
[2021-01-07] MEDS: heparin drip 25,000 UNIT/500 ML PREMIX 27 UNIT IV (08:21)
--- NOTE | 2021-01-07 08:58 | PC.CHAP ---
Pastoral Care Encounter/Spiritual Assessment Type of Contact [] Declined radiology administrator visit [] Patient/Family/Request visit [] Outpatient visit [] Follow-up visit [] Physician referral [] Code/Alert [x] Routine visit [] Staff referral [] Actively dying [] Patient sleeping [] Family support [] [] Out of room [] Palliative care [] [] Receiving care in room [] Pre-surgical visit [] Trauma [] Long length of stay [] ICU visit [] Other: Relational/Emotional Strength [] Patient feels connected with others/family/visitors/staff [] Distress [] Loneliness/isolation [] Abandonment Spirituality of Patient [] Person of Noemi [] Attends Adventist of their Noemi [] Believes in Prayer [] Reads Bible or Voodoo materials [] There are Spiritual issues to be addressed Radiographer Interventions [x] Prayer [x] Active listening [x] Non-anxious presence [x] Spiritual/emotional support [] Crisis/trauma care [] Spiritual counseling [] Bereavement support [] Provided bereavement packet [] Provided Bible/devotional materials [] Provided toy/stuffed animal, coloring book to patient or family member [] Provided Communion [] Anointing/[place] [] Salvation [x] Completed spiritual assessment [] Other: Impact on Illness or Injury [] Angry [] Fearful [] Anxious [] Often cries [] Exhaustion [] Unable to work [] Unable to attend advent [] Unable to walk/stand [] Unable to read [] Unable to drive [] Unable to eat/drink [] Unable to sleep [] Unable to be with family [] Patient intubated [] Other: Summary feeling stronger... Time spent with patient 10 min
--- NOTE | 2021-01-07 12:00 | P.PN_ITS ---
Subjective Subjective: Interval history: Continues doing better. He denies chest pain. Denies trouble breathing. Having lunch which he is tolerating well. Vitals/I&O/Wt Last Vital Signs Temp 97.9 F 01/07/21 10:53 Pulse 76 01/07/21 10:53 Resp 14 01/07/21 10:53 BP 104/64 01/07/21 10:53 Pulse Ox 92 01/07/21 10:53 01/06/21 01/07/21 01/07/21 22:59 06:59 14:59 Intake Total 1120 / 2120 456.86 / 2576.86 976.89 / 976.89 Output Total 200 / 200 350 / 350 Balance 1120 / 2120 256.86 / 2376.86 626.89 / 626.89 Weight last 48 hrs Weight 113.398 kg Weight 113.398 kg Physical Exam Narrative: EXAM NARRATIVE: Sitting up in bed. Eating lunch. Const: COMMON NORMALS: no acute distress, patient oriented x3 and alert GENERAL APPEARANCE: cooperative and comfortable ORIENTATION/CONSCIOUSNESS: Yes awake HENMT: COMMON NORMALS: oropharynx normal Neck/C-Spine: COMMON NORMALS: no JVD Resp: COMMON NORMALS: normal respiratory effort and clear to auscultation bilaterally AUSCULTATION: clear to auscultation bilaterally Cardio: COMMON NORMALS: no JVD, regular rhythm, S1 normal heart sound present, S2 normal heart sound present and No murmurs present (Cardio) RHYTHM: regular rhythm HEART SOUNDS: S1 normal heart sound present and S2 normal heart sound present GI: COMMON NORMALS: Normal to inspection, nondistended, normoactive bowel sounds present, Soft to palpation and non-tender PALPATION: Yes Soft to palpation Extremity: COMMON NORMALS: no joint enlargement and no pedal edema Neuro: COMMON NORMALS: patient oriented x3 and moves all extremities SENSORIUM/ORIENTATION: Yes alert Skin: COMMON NORMALS: no rashes or lesions noted GENERAL SKIN EXAM: no rashes or lesions noted Data : 01/07/21 04:20 01/07/21 04:20 A&P Assessment and plan (1) NSTEMI (non-ST elevated myocardial infarction): He states today he is feeling better. Chest pain so far resolved. Appr eciate cardiology assessment. He states they have had an extensive discussion yesterday, there is a tentative plan for additional assessment by coronary angiography. Continue aspirin, statin, anticoagulation. If blood pressure remains stable, add beta-nurys. Status: Acute (2) Hypotension: Discussed with him today about HOCM noted on echocardiography with dynamic LVOT. Discussed with him avoidance of hypovolemia, dehydration. Likely continuation of HCTZ may not be a good idea for him given he also is physically active at work, prior to dehydration. We discussed initiation of beta-nurys if blood pressure allows. Additional assessment of NSTEMI as above. Status: Acute Qualifiers: Hypotension type: unspecified hypotension type Qualified Code(s): I95.9 - Hypotension, unspecified (3) D-dimer, elevated: No DVT on duplex ultrasound. Discussed with ER physician, patient. Suspicion for PE is low. He does not have symptoms and his symptoms are explained better by his underlying condition. Will assess lower extremity duplex ultrasound. Monitor for any change in symptoms. Status: Acute (4) Chronic kidney disease: Possible acute kidney injury chronic kidney disease, creatinine down to 1.6 today. Monitor.Resume lisinopril once renal function stabilizes. Avoid hypotension. Suspected chronic kidney disease based on creatinine being similar to multiple values in 2019. Discussed with him. Status: Acute Qualifiers: Chronic kidney disease stage: stage 3 (moderate) Chronic kidney disease stage 3 subtype: stage 3b (GFR 30-44) Qualified Code(s): N18.32 - Chronic kidney disease, stage 3b (5) HOCM (hypertrophic obstructive cardiomyopathy): As above Status: Acute Attestations Medical Necessity Statement*: Continue admission for assessment management of non-STEMI, improved hypertension with HOCM, dynamic LVOT. 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
[2021-01-07 12:26] LABS: Partial Thromboplastin Time 93.7 SECONDS (23.9-36.7)
--- NOTE | 2021-01-07 12:33 | XACV_ITS ---
Exam Room: [facility] Ht: 188 cm Wt: 113 kg BSA: 2.46 m2 Gender: Male : 1960 Any Known Allergies: Penicillins Exam Priority: Routine Procedure(s): Procedure Description: Diagnostic procedure Procedure Description: Left Heart Catheterization Procedure Description: Left ventriculography Procedure Description: Coronary Angiography Diagnostic Cath Status: Urgent Diagnostic Findings * LM has minor luminal irregularities. * CX has no obstructive coronary artery disease. * RCA is a large vessel. It arises from right coronary cusp. Mild luminal irregularities are seen throughout the vessel. It gives rise to medium-sized PDA and a large sized PLV branch.. * LAD arises from left main artery. * It gives rise to a large diagonal branch. * It has mid segment * mild disease. mLAD: Mild 30% stenosis, ELISE: 3 flow. * Coronary angiography shows right dominance. Conclusions 1. There is mild mid LAD stenosis.. 2. There is a mean gradient of 12 mmHg across the aortic valve. Peak to peak gradient is 21 mmHg. This could be secondary to aortic stenosis or gradient across LVOT.. 3. Normal left ventricular systolic function. Ejection fraction of 60%. Recommendations * Continue current medical management and risk factor modification. Interventional RX Recommendation: medical therapy and/or counseling Diagnostic RX Recommendation: medical therapy and/or counseling Anticoagulation: Heparin Ventriculography Ejection Fraction: 60.0 % Pressures Phase:Rest AO : 121 / 77 ( 95 ) @ 10:35:00 AM 108 / 82 ( 95 ) @ 10:37:00 AM 118 / 71 ( 92 ) @ 10:43:00 AM 123 / 73 ( 95 ) @ 10:43:00 AM LV : 144 / -4 / @ 10:42:00 AM 139 / 0 / @ 10:43:00 AM 139 / 0 / @ 10:43:00 AM Valves Phase:DefaultPhase AV : 21.0 @ 4:50:36 PM AV Mean Gradient: 12.0 @ 4:50:36 PM Clinical Evaluation EBL: 5mL-10mL Procedural Details Procedure Consent Obtained. Pre-Procedure Time Out. Identified patient by full name and date of as verbalized by the patient/guarantor. Identified patient by full name and date of as verbalized by the patient/guarantor. Does the consent match the physician's order: Yes. Accurate & Complete Informed Consent: Yes. Inpatient/Outpatient History & Physical on Chart: Yes. If H&P is completed, is and addenduem needed: No; If yes, is the addendum complete: N/A. Visualize and Verify Site with Patient/Guarantor: N/A. Relevant Radiology Images available: N/A. Pre-op teaching completed and patient verbalized understanding. The risks, benefits, and alternatives of sedation and/or procedure were discussed by physician. The patient agrees to continue. Procedure started. [facility] Clinical Fraility Score: 3: Managing Well. Cloth Burler Indications: ACS <= 24 hours. Chest Pain Symptom Assessment: Typical Angina Symptoms. Cardiovascular Instability: No. Correct patient, site and procedure confirmed by cath team. PERRLA. 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 Lungs clear x 5 lobes. IV Site on Arrival: 20 gauge in the right anticubital. IV Fluids: 0.9% NaCl at KVO. 0 mL infused prior to microbiology lab analyst. Pre Procedural Pulses: bilateral radial was 3+. Oxygen started at 2liters/min via nasal canula. bilateral groins was prepped with chloroprep then draped in the usual sterile fashion. right radial was prepped with chloroprep then draped in the usual sterile fashion. Baseline sample Acquired. HR: 81 BPM. Equipment: 6F - Radial. Cardiac Cath Pack. ACIST Manifold Kit Model BT 2000. Heparinized Saline (2 units/mL), 1000 mL bag. Physician arrived. Physician scrubbed in. Immediate Pre-Procedure Time Out. Correct Patient: Yes; Correct Procedure: Yes; Correct Site: Yes; Correct Patient Position: Yes; Correct Supplies: Yes; Dried Flammable Prep: Yes; Blood Products Available: N/A;. Lidocaine 1% infiltrated to the right radial. Arterial access obtained. A TR 6FR Radial TIG 4.0 110cm was advanced over the wire and used for Left coronary angiography. Multiple views taken of left coronary artery. Catheter redirected to the RCA. Multiple views taken of right coronary artery. Catheter removed over the exchange wire. A 5 yakut Angled Pig catheter in over wire. EDP Sample taken: LV 144/-5,17; HR: 91 BPM; SpO2: 98%. LV gram performed in PAPPAS @ 10 mL/second for a total of 30 mL. EDP Sample taken: LV 139/0,19; HR: 90 BPM; SpO2: 98%. Pullback taken: LV 139/-1,19; AO 118/71(92); Mean: 12mmHg, Peak to Peak: 21mmHg, SEP: 22sec/min; HR: 91 BPM; SpO2: 98%. Catheter removed over the exchange wire. Physician scrubbed out. A TR Band was successful obtaining hemostatsis at the Right Radial artery insertion site. TR band placed. Hemostasis obtained. Post Procedure: Pulses reassessed and unchanged. PERRLA. 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 No VTE prophylaxis required. Medication's Wasted: Lidocaine 1% = 18 mL. Post-op diagnosis: non obstructive CAD. Medication's Wasted: Nitro = 49.8 mg. Medication's Wasted: Heparin = 3000 units. Total IV fluids: 75 mL. Contrast type used: Omnipaque 300 mgI/mL, 500 mL bottle. Complications: none. Estimated blood loss: 5mL-10mL. Procedure completed. Patient transferred by wheelchair to 1st floor. Vital chart was stopped. Access Site Site: Right Radial artery Sheath Size: 6 Fr Hemostasis Method: TR Band Hemostasis Success: Successful Procedure Medications Start: 4:11 PM Stop: 4:11 PM Medication: Fentanyl Amount: 50 mcg Route: I.V. Start: 4:26 PM Stop: 4:26 PM Medication: Fentanyl Amount: 50 mcg Route: I.V. Start: 4:27 PM Stop: 4:27 PM Medication: Versed Amount: 1 mg Route: I.V. Start: 4:33 PM Stop: 4:33 PM Medication: Nitrogylcerin Amount: 200 mcg Route: I.A. Start: 4:35 PM Stop: 4:35 PM Medication: Heparin Amount: 3000 units Route: I.V. Start: 4:37 PM Stop: 4:37 PM Medication: Versed Amount: 1 mg Route: I.V. I, the attending physician, have reviewed and verified all procedure medications. Yes, all medications given per verbal order History/Risk Factors Hypertension: Yes Dyslipidemia: Yes Peripheral Arterial Disease (PAD): No Myocardial Infarction (MS): No Obesity: No Renal Disease: No Tobacco Use: Never Prior Interventions PCI: No CABG: No Valve Surgery: No Report Signatures Finalized by Gerald Sher MD on 01/07/2021 05:04 PM
[2021-01-07 13:05] LABS: Chol HDL Ratio 6.96 mg/dL (1.0-5.00); Cholesterol 167 mg/dL (0-200); Estmated Average Glucose 103; HDL Cholesterol 24 mg/dL (60-100); Hemoglobin A1C 5.2 % (4.0-6.0); LDL Cholesterol Calculated 100 mg/dL (50-129); LDL Cholesterol Direct 127 mg/dL (0-100); LDL HDL Ratio 4.17 RATIO (0.00-3.22); Triglycerides 214 mg/dL (0-150)
[2021-01-07] MEDS: ticagrelor 90 mg Tablet 180 MG PO (13:30)
[2021-01-07] MEDS: diphenhydrAMINE 50 mg Capsule PO (14:25)
[2021-01-07] MEDS: sodium chloride 0.9% 1,000 ML 50 ML IV (14:26)
--- NOTE | 2021-01-07 16:00 | PC.NURSE ---
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
--- NOTE | 2021-01-07 16:27 | W.PM.OPSUD ---
Surgery/Procedure H&P Update DATE OF PROCEDURE: January 07, 2021 DATE H&P PERFORMED: 01/06/21 H&P UPDATE INFORMATION: I have reviewed H&P completed within last 30 days, I have examined patient prior to procedure and Changes to prior documentation as noted here PREOP DIAGNOSIS: NSTEMI PRIMARY INDICATION FOR PROCEDURE: NSTEMI PLANNED PROCEDURE: Operation Date: 01/07/21 15:30 Proposed Procedures p left Cardiac Catheterization 06663 I21.4(Left) - Gerald Sher M.D PATIENT REASSESSED PRIOR TO SEDATION, WITH NO CHANGE NOTED: Yes PHYSICAL EXAM: alert and oriented x 3 AIRWAY EVAL/ANESTHESIA PLAN: ASA III, Risks, benefits & alternatives of sedation and/or procedure discussed and Patient agrees to continue as planned
--- NOTE | 2021-01-07 16:32 | P.PN_ITS ---
Subjective Subjective: Interval history: Patient was examined before and after coronary angiogram. Normal coronaries on cardiac catheterization. Medications: Reviewed: Yes Medication Review Details: Current Medications Acetaminophen (Acetaminophen 500 Mg Tablet) 1,000 mg PO Q4H PRN PRN Reason: MILD PAIN OR INCREASE TEMP Acetaminophen (Acetaminophen 325 Mg Tablet) 650 mg PO Q6H PRN PRN Reason: Mild/Mod Pain Or Temp >/= 101 Acetaminophen (Acetaminophen 325 Mg Tablet) 650 mg PO Q6H PRN PRN Reason: MILD PAIN Al Hydrox/Mg Hydrox/Simethicone (Vywz-Foc-Ncclehesh-Earlene 30 Ml Udc) 30 ml PO Q15M PRN PRN Reason: INDIGESTION Alprazolam (Alprazolam 0.25 Mg Tablet) 0.25 mg PO TID PRN PRN Reason: ANXIETY Aspirin (Aspirin 81 Mg Chew Tablet) 81 mg PO DAILY [facility] Atorvastatin Calcium (Atorvastatin 40 Mg Tablet) 40 mg PO BEDTIME [facility] Last Admin: 01/06/21 22:36 Dose: 40 mg Documented by: Atropine Sulfate (Atropine 1 Mg/Ml Sdv 1 Ml) 0.5 mg IVP PRN PRN PRN Reason: Symptomatic bradycardia Famotidine (Famotidine 20 Mg Tablet) 20 mg PO BID [facility] Last Admin: 01/07/21 08:18 Dose: 20 mg Documented by: Fentanyl (Fentanyl 50 Mcg/Ml Inj 2ml) 50 mcg IVP PRN PRN PRN Reason: Prior to sheath removal Sodium Chloride (Sodium Chloride 0.9%) 1,000 mls @ 50 mls/hr IV .Q20H ONE Stop: 01/08/21 08:32 Last Admin: 01/07/21 14:26 Dose: 50 mls/hr Documented by: Sodium Chloride (Sodium Chloride 0.9%) 1,000 mls @ 100 mls/hr IV .Q10H [facility] Magnesium Hydroxide (Magnesium Hydroxide 30 Ml Udc) 30 ml PO DAILY PRN PRN Reason: CONSTIPATION Naloxone HCl (Naloxone 0.4 Mg/Ml Sdv) 0.1 mg IVP Q2M PRN PRN Reason: RESPIRATORY RATE < 8/MIN Nitroglycerin (Nitroglycerin 0.4 Mg Sublingual Tablet) 0.4 mg SUBLINGUAL Q5M PRN PRN Reason: CHEST PAIN Ondansetron HCl (Ondansetron 2 Mg/Ml Sdv 2 Ml) 4 mg IVP Q8H PRN PRN Reason: vomiting, or N/V if npo Temazepam (Temazepam 15 Mg Capsule) 15 mg PO BEDTIME PRN PRN Reason: INSOMNIA Vitals/I&O/Wt Last Vital Signs Temp 99.0 F 01/07/21 14:58 Pulse 82 01/07/21 14:58 Resp 20 H 01/07/21 14:58 BP 101/66 01/07/21 14:58 Pulse Ox 99 01/07/21 14:58 01/07/21 01/07/21 01/07/21 06:59 14:59 22:59 Intake Total 456.86 / 2576.86 1582.44 / 1582.44 66 / 1648.44 Output Total 200 / 200 350 / 350 Balance 256.86 / 2376.86 1232.44 / 1232.44 66 / 1298.44 Weight last 48 hrs Weight 250 lb Weight 250 lb Physical Exam Narrative: EXAM NARRATIVE: GENERAL: obese man lying in bed in no acute distress HEENT: Extraocular movement intact. Pupils equal round reactive to light. No pallor or icterus. NECK: central trachea, No JVD or abdominojugular reflex. No carotid bruit. CARDIOVASCULAR SYSTEM: S1-S2 regular. No S3 or S4 present. No murmur rubs or gallops. RESPIRATORY SYSTEM: Chest clear to auscultation. No wheezes rhonchi or rubs heard. No use of accessory muscles. ABDOMEN: Soft, nontender and nondistended. Normal bowel sounds present. EXTREMITIES: No cyanosis or clubbing. No edema. No signs of chronic venous insufficiency. BOTTOM STEEP TENDER: Patient is alert oriented ?3. No focal neurological deficits. Cranial nerves intact. SKIN: Normal turgor and temperature. No breakdown, rash or nail changes noted. PSYCH: Normal insight and judgment. Data : 01/08/21 04:19 01/08/21 04:19 A&P Assessment and plan (1) NSTEMI (non-ST elevated myocardial infarction): [place] -started on statin and low dose metoprolol -Echo with LAD territory RWMA. LVEF mildly decreased. Cath with normal c oronaries and normal LVEF Status: Resolved (2) Hypotension: Given HCM phenotype, recommend IV fluids, avoiding dehydration and afterload reducers. -Beta blockers to keep HR 50-60 bpm. Status: Resolved Qualifiers: Hypotension type: unspecified hypotension type Qualified Code(s): I95.9 - Hypotension, unspecified (3) HLD (hyperlipidemia): Status: Resolved Qualifiers: Hyperlipidemia type: unspecified Qualified Code(s): E78.5 - Hyperlipidemia, unspecified (4) Chronic kidney disease: Baseline unknown, however Cr-1.9 today and in last admission. Status: Acute Qualifiers: Chronic kidney disease stage: stage 3 (moderate) Chronic kidney disease stage 3 subtype: stage 3b (GFR 30-44) Qualified Code(s): N18.32 - Chronic kidney disease, stage 3b Additional A&P Information H/O HTN HOCM phenotype Thank you for allowing me to participate in patient's care. Please feel free to call with questions or concerns. Attestations Medical Necessity Statement*: As per primary team. Time Spent in Patient Care: 16 - 35 minutes (>than 50% of time spent in counselling and/or direct pt care on unit) . Coding Level of Care Code Acute Polymer Tester for [facility] Fwd Diagnoses NSTEMI (non-ST elevated myocardial infarction) I21.4 Hypotension I95.9 Hypotension type: unspecified hypotension type HLD (hyperlipidemia) E78.5 Hyperlipidemia type: unspecified Chronic kidney disease N18.32 Chronic kidney disease stage: stage 3 (moderate) Chronic kidney disease stage 3 subtype: stage 3b (GFR 30-44)
--- NOTE | 2021-01-07 18:30 | PC.NURSE ---
Removed 3 ml of air from TR band without any oozing at 181. Removed additional 4 ml at 1830. Again no ozzing from site.
--- NOTE | 2021-01-07 19:08 | PC.NURSE ---
Remaining air removed from TR band. TR band removed. No hematoma, no bleeding, 2x2 dressing with clear opsite placed over site.
[2021-01-07] MEDS: atorvastatin 40 mg Tablet PO (20:55)
--- NOTE | 2021-01-07 21:23 | USCV_ITS ---
Jeffy Nguyen Age: 60 Gender: M : 1960 Exam Date: 01/07/2021 06:08 Ordering Phys: Eric Sapp MD Technologist: Sharon Charles [place] [facility] [place]: EVAL FOR DVT HISTORY: DVT. PROCEDURES: Venous duplex imaging was performed in bilateral lower extremities. The following venous structures were evaluated: common femoral vein, profunda vein, proximal portion of the greater saphenous vein, superficial femoral vein, and the popliteal vein. In addition, the posterior tibial and peroneal trunk were evaluated. Serial compression, augmentation maneuvers, and spectral Doppler flow evaluation were performed. FINDINGS: Normal 2-D Doppler and augmentation and compressibility throughout the lower extremity venous structures. Additional imaging through the proximal calf veins also reveals no thrombus. Limited evaluation of the greater saphenous vein is patent with no thrombus. CONCLUSIONS No DVT bilateral lower extremities. Dr. Justina Gonzalez DO (Electronically Signed) Final Date: 07 January 2021 08:26 S
[2021-01-08] VITALS (14 sets, daily range): BP systolic 101–142; BP diastolic 60–95; PULSE 72–96; RESP 9–17; TEMP 36.4–36.8; O2SAT 92–96; BMI 32.1
[2021-01-08] MEDS: sodium chloride 0.9% 1,000 ML 100 ML IV (02:16)
--- NOTE | 2021-01-08 02:23 | PC.NURSE ---
NURSE NOTE: PT ALERT AND ORIENTED X4; MOVES ALL EXTREMITIES AND FOLLOWS ALL COMMANDS. RT RADIAL CATH SITE DRESSING CLEAN DRY AND INTACT. NO DRAINAGE NOTED TO SITE. RADIAL PULSES 3+ BILATERALLY. PT DENIES PAIN AT SITE. CURRENTLY RESTING WITH EYES CLOSED; RESP EVEN AND NON LABORED. ALL VS AND ASSESSMENTS CHARTED. NO DISTRESS NOTED.
[2021-01-08 04:54] LABS: Basophils % 0.7 %; Eosinophils # 0.2 10^3/uL (0.0-0.8); Eosinophils % 2.6 %; Hematocrit 40.2 % (42.0-52.0); Hemoglobin 13.5 g/dL (11.7-16.6); Lymphocytes % 15.7 %; Mean Corpuscular HGB Conc 33.6 g/dL (30.0-36.0); Mean Corpuscular Hemoglobin 31.2 pg (28.0-34.0); Mean Corpuscular Volume 92.8 fL (80-94); Mean Platelet Volume 10.6 fL (7.4-10.4); Monocytes # 0.6 10^3/uL (0.2-0.9); Monocytes % 9.3 %; Neutrophils # 4.39 10^3/uL (1.8-7.7); Neutrophils % 71.5 %; Nucleated Red Blood Cells % 0 %; Platelet Count 183 10^3/cmm (130-400); Red Blood Count 4.33 10^6/uL (4.1-5.3); Red Cell Distribution Width 11.9 % (12.1-15.1); White Blood Count 6.1 10^3/uL (4.0-10.0)
[2021-01-08 05:22] LABS: Alanine Aminotransferase 15 U/L (0-41); Albumin Level 3.6 g/dL (3.5-5.2); Alkaline Phosphatase 57 IU/L (40-130); Anion Gap 11.9 (5-19); Aspartate Amino Transferase 14 U/L (0-40); Blood Urea Nitrogen 17 mg/dL (8-23); Calcium 8.2 mg/dL (8.5-10.5); Carbon Dioxide 24 mmol/L (22-29); Chloride 105 mmol/L (98-107); Globulin 2.3 g/dL (1.3-4.6); Glomerular Filtration Rate 36.1 mL/min (90-130); Glucose 96 mg/dL (65-115); Osmolality Calculated 285 mOsm/kg (285-295); Potassium 3.9 mmol/L (3.5-5.1); Sodium 137 mmol/L (136-145); Total Bilirubin 0.5 mg/dL (0.15-1.2); Total Protein 5.9 g/dL (6.6-8.7)
[2021-01-08] MEDS: aspirin 81 mg Chew Tablet PO (08:39)
[2021-01-08] MEDS: famotidine 20 mg Tablet PO (08:39)
[2021-01-08] MEDS: metoprolol tartrate 25 mg Tablet 12.5 MG PO ×2 (08:41→13:44)
--- NOTE | 2021-01-08 17:01 | PM.DCS ---
Discharge Providers Date of Admission: 01/06/21 15:11 Date of Discharge: January 08, 2021 Attending Provider at Admission: Eric Sapp Attending Provider at Discharge: Eric Sapp Primary Care Provider: Mirian Galindo NP Diagnoses at Discharge Discharge Diagnosis (1) NSTEMI (non-ST elevated myocardial infarction): Status: Acute (2) Hypotension: Status: Acute Qualifiers: Hypotension type: unspecified hypotension type Qualified Code(s): I95.9 - Hypotension, unspecified (3) HLD (hyperlipidemia): Status: Acute Qualifiers: Hyperlipidemia type: unspecified Qualified Code(s): E78.5 - Hyperlipidemia, unspecified (4) Chronic kidney disease: Status: Acute Qualifiers: Chronic kidney disease stage: stage 3 (moderate) Chronic kidney disease stage 3 subtype: stage 3b (GFR 30-44) Qualified Code(s): N18.32 - Chronic kidney disease, stage 3b Reason for Visit Reason for Visit: chest pain Hospital Course Hospital Course Pleasant 60-year-old gentleman with history of HTN, reported possible mild heart attack in the past, was admitted after episode of chest pain, 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 With noted troponin elevation, found to have NSTEMI, initially with hypotension. Recently with poor oral nutrition hydration, continue taking his medications including lisinopril and HCTZ. Noted dehydrated, with noted chronic kidney disease as opposed to acute kidney injury on chronic kidney disease. Received fluid challenge. Antihypertensives were held. D-dimer on presentation minimally elevated at 0.77. He otherwise did not have symptoms to suggest PE. Lower extremity venous duplex was negative for DVT. Suspicion of PE was low. With gradual but steady improvement in his blood pressures, resolution in his chest pain, with symmetrical blood pressures bilaterally, no mediastinal widening, aortic dissection was considered, but probably found low. He was assessed by cardiology. Underwent contrast enhanced TTE, with finding of septal hypertrophy, mildly decreased LVEF, 40-45%, hypokinesis of mid to apical anteroseptal, mid to apical anterior, apical lateral, apical inferior and apical edward. Normal diastolic function. PA pressure 35 mmHg. With noted dynamic LVOT obstruction with resting LV gradient of 31 mmHg, increasing to 144 mmHg with Valsalva. Findings suggestive of HOCM. Due to significant elevation was empirically treated for non-STEMI, additionally underwent assessment by coronary angiography with finding of mild LAD stenosis, LVEF of 60%. He was monitored on telemetry while in the hospital without finding of arrhythmia. He was started on beta-nurys after blood pressures improved. He was counseled in detail to avoid dehydration, overexertion, activities that may lead to significant tachycardia, hypotension or overtreatment of hypertension. Please also avoid afterload reducers. He is doing well today. He was seen by cardiology and cleared for discharge with request for outpatient follow-up. In addition to hokum with dynamic LVOT obstruction, hypertension, please also follow-up on his renal function. Physical Exam Const: COMMON NORMALS: no acute distress and patient oriented x3 HENMT: COMMON NORMALS: oropharynx normal Neck/C-Spine: COMMON NORMALS: no JVD Resp: COMMON NORMALS: normal respiratory effort and clear to auscultation bilaterally AUSCULTATION: clear to auscultation bilaterally Cardio: COMMON NORMALS: no JVD, regular rhythm, S1 normal heart sound present, S2 normal heart sound present and No murmurs present (Cardio) RHYTHM: regular rhythm HEART SOUNDS: S1 normal heart sound present and S2 normal heart sound present GI: COMMON NORMALS: Normal to inspection, nondistended, normoactive bowel sounds present, Soft to palpation and non-tender PALPATION: Yes Soft to palpation Extremity: COMMON NORMALS: no joint enlargement and no pedal edema Neuro: COMMON NORMALS: patient oriented x3 and moves all extremities Skin: COMMON NORMALS: no rashes or lesions noted GENERAL SKIN EXAM: no rashes or lesions noted Discharge Data Data Completed and Pending: Completed Studies During Hospitalization Category Date Time Status YARD BRAKEMAN request for service Urgent Exams 01/07/21 12:33 Completed XR chest 1V anand ble [id number] Stat Exams 01/06/21 11:16 Completed CV echo wo/w cont rast [id number] Routine Ultrasound 01/06/21 16:22 [place] [id number] Routin e Ultrasound 01/07/21 21:23 Completed US/CV paperwork U rgent Ultrasound 01/06/21 Completed Pending at discharge Category Date Time Status Complete Blood Co unt w/Auto AM LABS Lab 01/09/21 04:00 Ordered Comprehensive Met abolic Panel AM LA BS Lab 01/09/21 04:00 Ordered Platelet Count Q2 D Lab 01/10/21 04:00 Ordered Labs from last 24 hours 01/08/21 01/08/21 04:19 04:19 WBC 6.1 RBC 4.33 Hgb 13.5 Hct 40.2 L MCV 92.8 MCH 31.2 MCHC 33.6 RDW 11.9 L Plt Count 183 MPV 10.6 H Neut % (Auto) 71.5 Lymph % (Auto) 15.7 [place] % (Auto) 9.3 Eos % (Auto) 2.6 Baso % (Auto) 0.7 Neut # (Auto) 4.39 Lymph # (Auto) 1.0 [place] # (Auto) 0.6 Eos # (Auto) 0.2 Baso # (Auto) 0.0 Nucleated RBC % (a uto) 0 Nucleated RBCs # 0.0 Sodium 137 Potassium 3.9 Chloride 105 Carbon Dioxide 24 Anion Gap 11.9 BUN 17 Creatinine 1.9 H GFR Calculation 36.1 L Glucose 96 Calculated Osmolal ity 285 Calcium 8.2 L Total Bilirubin 0.5 AST 14 ALT 15 Alkaline Phosphata se 57 Total Protein 5.9 L Albumin 3.6 Globulin 2.3 Vitals: Last Vital Signs Temp 97.9 F 01/08/21 16:31 Pulse 72 01/08/21 16:31 Resp 16 01/08/21 16:31 BP 134/88 01/08/21 16:31 Pulse Ox 96 01/08/21 16:31 Discharge Plan Discharge Patient Disposition: Home Condition: Stable Prescriptions: New metoprolol tartrate 25 mg Tablet 25 mg PO BID@0900,2100 Qty: 60 RF: 0 Continued atorvastatin 20 mg tablet See Rx Instructions .ROUTE .COMPLEX RF: 0 aspirin 81 mg Tablet,Delayed Release (Dr/Ec) 81 mg PO QAM RF: 0 Tylenol Extra Strength 500 mg Tablet 1,000 mg PO PRN RF: 0 sildenafil (pulm.hypertension) 20 mg tablet See Rx Instructions .ROUTE .COMPLEX RF: 0 Discontinued lisinopril 20 mg tablet 20 mg PO QAM RF: 0 hydrochlorothiazide 25 mg tablet 25 mg PO QAM RF: 0 Discharge Orders: Discharge Order (Routine); Ordered 01/08/21 Ordered By: Eric Sapp Referrals: Mirian Galindo, RANDEE [Primary Care Provider] - 4-7 days (Mirian Galindo's office will be calling to set up a hospital followup to be seen in 4 to 7 days. If you don't hear from them by Monday afternoon, please give them a call. Thank you) Liz Bolden MD [Physician] - 1 week ([facility] will be calling to schedule a cardiology followup with Dr. Bolden to be seen in approx. 1 week. If you don't hear from them by Monday afternoon, please give them a call. Thank you) Discharge Diet: Cardiac Discharge Activity: Increase activity as tolerated and Limit activity as instructed Patient Instructions: Metoprolol (By mouth), Left Heart Catheterization (DC), Hypertrophic Cardiomyopathy (GEN), Chronic Kidney Disease (GEN), Post Angiogram Home Care Instructions Activity Restrictions/Additional Instructions: Avoid dehydration. Avoid low blood pressure (generally avoid blood pressures below 110/70). Avoid excessively fast heart rates and overexertion. All the situations may lead to your heart not pumping blood out effectively, leading to drop in blood pressure, low perfusion to different organs including brain, may lead to fainting, falls and injury, in severe cases shock, multiple organ injury, abnormal heart rhythms, heart failure, . If you experience any chest pain or pressure, severe shortness of breath, persistently low blood pressures, fainting, heart racing or skipping beats, or other concerning symptoms call 911 immediately. Do not take Viagra together with nitroglycerine. Discharge Attestations Time Spent in Discharge Care*: greater than 30 min Quality Metrics Clinical Quality Measures During this hospital stay, did patient experience: None Coding Level of Care Code Acute Protective Signal Repairer for [facility] Fwd Diagnoses NSTEMI (non-ST elevated myocardial infarction) I21.4 Hypotension I95.9 Hypotension type: unspecified hypotension type HLD (hyperlipidemia) E78.5 Hyperlipidemia type: unspecified Chronic kidney disease N18.32 Chronic kidney disease stage: stage 3 (moderate) Chronic kidney disease stage 3 subtype: stage 3b (GFR 30-44)
--- NOTE | 2021-01-08 17:10 | P.PN_ITS ---
Subjective Subjective: Interval history: No new complaints. Patient denies having any chest pain. Blood pressure is improved after IV fluid hydration. Normal coronaries on [facility]. Medications: Reviewed: Yes Medication Review Details: Current Medications Acetaminophen (Acetaminophen 500 Mg Tablet) 1,000 mg PO Q4H PRN PRN Reason: MILD PAIN OR INCREASE TEMP Acetaminophen (Acetaminophen 325 Mg Tablet) 650 mg PO Q6H PRN PRN Reason: Mild/Mod Pain Or Temp >/= 101 Acetaminophen (Acetaminophen 325 Mg Tablet) 650 mg PO Q6H PRN PRN Reason: MILD PAIN Al Hydrox/Mg Hydrox/Simethicone (Ichc-Tms-Ylnvppjbo-Earlene 30 Ml Udc) 30 ml PO Q15M PRN PRN Reason: INDIGESTION Alprazolam (Alprazolam 0.25 Mg Tablet) 0.25 mg PO TID PRN PRN Reason: ANXIETY Aspirin (Aspirin 81 Mg Chew Tablet) 81 mg PO DAILY [facility] Last Admin: 01/08/21 08:39 Dose: 81 mg Documented by: Atorvastatin Calcium (Atorvastatin 40 Mg Tablet) 40 mg PO BEDTIME [facility] Last Admin: 01/07/21 20:55 Dose: 40 mg Documented by: Atropine Sulfate (Atropine 1 Mg/Ml Sdv 1 Ml) 0.5 mg IVP PRN PRN PRN Reason: Symptomatic bradycardia Famotidine (Famotidine 20 Mg Tablet) 20 mg PO BID [facility] Last Admin: 01/08/21 08:39 Dose: 20 mg Documented by: Fentanyl (Fentanyl 50 Mcg/Ml Inj 2ml) 50 mcg IVP PRN PRN PRN Reason: Prior to sheath removal Magnesium Hydroxide (Magnesium Hydroxide 30 Ml Udc) 30 ml PO DAILY PRN PRN Reason: CONSTIPATION Metoprolol Tartrate (Metoprolol Tartrate 25 Mg Tablet) 25 mg PO BID@0900,2100 [facility] Naloxone HCl (Naloxone 0.4 Mg/Ml Sdv) 0.1 mg IVP Q2M PRN PRN Reason: RESPIRATORY RATE < 8/MIN Nitroglycerin (Nitroglycerin 0.4 Mg Sublingual Tablet) 0.4 mg SUBLINGUAL Q5M PRN PRN Reason: CHEST PAIN Ondansetron HCl (Ondansetron 2 Mg/Ml Sdv 2 Ml) 4 mg IVP Q8H PRN PRN Reason: vomiting, or N/V if npo Temazepam (Temazepam 15 Mg Capsule) 15 mg PO BEDTIME PRN PRN Reason: INSOMNIA Vitals/I&O/Wt Last Vital Signs Temp 97.9 F 01/08/21 16:31 Pulse 72 01/08/21 16:31 Resp 16 01/08/21 16:31 BP 134/88 01/08/21 16:31 Pulse Ox 96 01/08/21 16:31 01/08/21 01/08/21 01/08/21 06:59 14:59 22:59 Intake Total 1700 / 1700 Output Total 250 / 1050 600 / 600 Balance -250 / 5461.134 0161 / 1100 Weight last 48 hrs Weight 250 lb Weight 250 lb Physical Exam Narrative: EXAM NARRATIVE: GENERAL: obese man lying in bed in no acute distress HEENT: Extraocular movement intact. Pupils equal round reactive to light. No pallor or icterus. NECK: central trachea, No JVD or abdominojugular reflex. No carotid bruit. CARDIOVASCULAR SYSTEM: S1-S2 regular. No S3 or S4 present. No murmur rubs or gallops. RESPIRATORY SYSTEM: Chest clear to auscultation. No wheezes rhonchi or rubs heard. No use of accessory muscles. ABDOMEN: Soft, nontender and nondistended. Normal bowel sounds present. EXTREMITIES: No cyanosis or clubbing. No edema. No signs of chronic venous insufficiency. 2+ radial with no significant bruising or hematoma. BINDING CUTTER: Patient is alert oriented ?3. No focal neurological deficits. Cranial nerves intact. SKIN: Normal turgor and temperature. No breakdown, rash or nail changes noted. PSYCH: Normal insight and judgment. Data : 01/08/21 04:19 01/08/21 04:19 A&P Assessment and plan (1) NSTEMI (non-ST elevated myocardial infarction): -continue ASA, low dose statin -continue to monitor closely given soft BP. -Echo with LAD territory RWMA. LVEF mildly decreased. -Normal coronaries on [facility] -increase metoprolol to 25 mg twice a day. -Plan for Cardiac MRI outpatient. -f/u in 1 week in [facility]. Status: Resolved (2) Hypotension: Given HCM phenotype, recommend IV fluids, avoiding dehydration and afterload reducers. -Beta blockers to keep HR 50-60 bpm. Status: Resolved Qualifiers: Hypotension type: unspecified hypotension type Qualified Code(s): I95.9 - Hypotension, unspecified (3) HLD (hyperlipidemia): Status: Resolved Qualifiers: Hyperlipidemia type: unspecified Qualified Code(s): E78.5 - Hyperlipidemia, unspecified (4) Chronic kidney disease: Baseline unknown, however Cr-1.9 today and in last admission. Status: Acute Qualifiers: Chronic kidney disease stage: stage 3 (moderate) Chronic kidney disease stage 3 subtype: stage 3b (GFR 30-44) Qualified Code(s): N18.32 - Chronic kidney disease, stage 3b Additional A&P Information H/O HTN HOCM phenotype Thank you for allowing me to participate in patient's care. Please feel free to call with questions or concerns. Attestations Medical Necessity Statement*: stable to be discharged home Time Spent in Patient Care: Greater than 35 minutes (>than 50% of time spent in counselling and/or direct pt care on unit) . Coding Level of Care Code Acute Creative Director for [facility] Fwd Diagnoses NSTEMI (non-ST elevated myocardial infarction) I21.4 Hypotension I95.9 Hypotension type: unspecified hypotension type HLD (hyperlipidemia) E78.5 Hyperlipidemia type: unspecified Chronic kidney disease N18.32 Chronic kidney disease stage: stage 3 (moderate) Chronic kidney disease stage 3 subtype: stage 3b (GFR 30-44)
--- NOTE | 2021-01-08 17:43 | PC.NURSE ---
Discharge to home Instructed pt to follow-up with his pcp and cardiologists as discussed. Educated pt on his new med actions, possible side effects, and timing. Discuss to him continued meds and stopped meds. Discharge papers provided to pt. Pt was dispense with 2 tabs of Metoprolol 25 mg due to his pharmacy is close this evening. Faxed dispense medication inpt pharmacy here.
== END 2021-01-08 17:20 | disposition home or self-care (01) | DRG 281 ==
LOC: ER 15:55 → CSU 19:06
PROVIDERS: Internal Medicine; Internal Medicine Cardiovascular Disease; Admitting Provider Internal Medicine; Emergency Provider Family Medicine; PCP Nurse Practitioner Family; Visit Provider Internal Medicine
PROC: 4A023N7 Measurement of Cardiac Sampling and Pressure, Left Heart, Percutaneous Approach (ICD-10-PCS; principal; 2021-01-07 15:30)
DX: I21.4 Non-ST elevation (NSTEMI) myocardial infarction (principal); N17.9 Acute kidney failure, unspecified; I95.9 Hypotension, unspecified; E78.5 Hyperlipidemia, unspecified; Z79.82 Long term (current) use of aspirin; N18.32 Chronic kidney disease, stage 3b; I12.9 Hypertensive chronic kidney disease with stage 1 through stage 4 chronic kidney disease, or unspecified chronic kidney disease
CPT/HCPCS: 36415; 71045; 80053; 80061; 82550; 83036; 83690; 83721; 83880; 84484; 85025; 85049; 85378; 85610; 85730; 93005; 93452; 93970; 96365; 96366; 96375; 99292; C1769; C1887; C1894; C8929; J1644; J2250; J3010; J3490; J7030; Q0163; Q9956; Q9967